=== PATIENT | male | born 1990 | race Caucasian/White ===

== ENCOUNTER 2023-07-01 16:19 | Observation (INO) ==
--- NOTE | 2023-07-01 16:46 | ED Triage Note ---
Date of Service July 01, 2023 History of Present Illness This patient was briefly evaluated while in triage. An abbreviated physical exam was performed. This patient is a 33-year-old with a history of bleeding gastric ulcer follows in [place] [facility] who presents to the ED for evaluation of bloody diarrhea and hematemesis. Started yesterday. History of admission in the past requiring transfusion. Not on any daily meds. Feels short of breath, no chest pain. Denies any abdominal pain. Physical Exam CONSTITUTIONAL: in no acute pain or distress, mildly uncomfortable SKIN: pink, warm, dry CARDIAC: tachycardic rate and regular rhythm RESPIRATORY: in no respiratory distress, lungs clear to auscultation ABDOMEN: No focal tenderness Initial orders for labs and / or imaging were placed and patient was placed in the waiting area until a bed is available. Please see further documentation for the full ED course.
[2023-07-01] MEDS ORDERED: PANTOPRAZOLE BOLUS/DRIP IV STA (17:32)
[2023-07-01] MEDS ORDERED: PANTOprazole 80 MG in DEXTROSE 5% 100 ML IV ONE (17:32)
--- NOTE | 2023-07-01 17:43 | Emergency Department Note ---
History of Present Illness General Chief complaint: Bleeding Stated complaint: BLEEDING INTERNALLY, VOMIT BLOOD Time Seen by Provider: 07/01/23 17:31 History of Present Illness Provider Complaint: + gross hematemesis, + melena and + gross hematochezia Onset (ago): 1 day(s) Pain Consistency: + intermittent Severity: similar to previous episodes Relieved By: + none Exacerbated By: + eating Context: + history of GI bleed and + alcohol abuse (History of alcohol abuse however he states he has not been drinking recently); no rectal trauma Associated symptoms: + nausea and + vomiting; no abdominal pain, no fever, no chills, no headaches or no shortness of breath HPI Narrative: Patient states that he has a history of alcohol abuse. He states he has not drank alcohol in the last year. The patient reports that last year he had a GI bleed secondary to ulcers. Patient reports he had endoscopy done at [facility] and had to be transfused 4 to 6 units of blood. Home Medications Medication Instructions Recorded Confirmed Type acetaminophen 500 mg tablet 100 mg PO Q6H PRN Pain 07/01/23 07/01/23 History (Tylenol Extra Strength) albuterol sulfate 90 mcg/actuation 2 puff inhalation Q6H PRN 07/01/23 07/01/23 History aerosol inhaler Shortness Of Breath Or Wheezing famotidine-Ca carb-mag hydrox 10 1 tab PO BID PRN Acid Reflux 07/01/23 07/01/23 History mg-800 mg-165 mg chewable tablet (Pepcid Complete) sumatriptan succinate 50 mg tablet 0 mg PO .COMPLEX 07/01/23 07/01/23 History (Imitrex) Allergies Allergy/AdvReac Type Severity Reaction Status Date / Time No Known Allergies Allergy Unverified 07/01/23 20:07 Past Med/Surg History Medical History (Updated 07/01/23 @ 23:12 by Guy Santos MD) GI bleed No pertinent family history Surgical History (Updated 07/01/23 @ 18:10 by Guy Santos MD) No pertinent past surgical history Social History Smoking Status: Never smoker Preferred Language: Yi Feels Safe at Home: Yes Physical Exam Vital Signs: Vital Signs - 24 hr 07/01/23 16:35 07/01/23 18:08 07/01/23 18:25 Temperature 36.7 C Temperature Source Temporal Artery Sc an Pulse Rate 125 H 108 H Pulse Rate [Apical ] Respiratory Rate 20 Respiratory Effort / Characteristics Respiratory Depth Respiratory Patter n Blood Pressure 114/70 Blood Pressure [Ri ght Arm] Blood Pressure Melissa n 84 Blood Pressure Melissa n [Right Arm] Pulse Oximetry 96 Oxygen Delivery Me thod Room Air Room Air Sepsis Recent Feve r Within 48 Hours No Sepsis New/Unexpla ined Change in Men lorteo Status N/A Sepsis Action Take n by Nursing No Action Required 07/01/23 19:43 Temperature Temperature Source Pulse Rate Pulse Rate [Apical ] 94 H Respiratory Rate 13 Respiratory Effort / Characteristics Non-Labored Sponta neous Respiratory Depth Normal Respiratory Patter n Regular Blood Pressure Blood Pressure [Ri ght Arm] 116/71 Blood Pressure Melissa n Blood Pressure Melissa n [Right Arm] 86 Pulse Oximetry 97 Oxygen Delivery Me thod Room Air Sepsis Recent Feve r Within 48 Hours Sepsis New/Unexpla ined Change in Men loreto Status Sepsis Action Take n by Nursing Physical Exam: Physical Exam GENERAL: She is oriented to person, place, and time. She appears well-developed and well-nourished. She does not appear distressed. HENT: Exam performed. -Head: Normocephalic and atraumatic. -Right Ear: External ear normal. No mastoid erythema -Left Ear: External ear normal. No mastoid erythema -Mouth/Throat: The oropharynx is clear and moist. No trismus in the jaw. No dental abscesses or uvula swelling. No oropharyngeal exudate or tonsillar abscesses. EYES: Conjunctivae and EOM are normal.Right eye exhibits no discharge. Left eye exhibits no discharge. No scleral icterus. NECK: Normal range of motion. Neck supple. No JVD present. No tracheal deviation and normal range of motion present. CV: Normal rate, regular rhythm, normal heart sounds and intact distal pulses. There is no peripheral edema. Palpable radial pulses bue. PULM/CHEST: Effort normal and breath sounds normal. No respiratory distress. No stridor. She has no wheezes. She has no rales. -Chest Wall: She exhibits no tenderness. ABD: The abdomen is soft and obese. Bowel sounds are normal. She has no distension. No mass is present. There is no tenderness. There is no rebound, no guarding, no Polanco's sign and no tenderness at McBurney's point. Rovsig negative Rectal: Melanotic stools mixed with bloody stools. Hemoccult positive MUSC/SKEL: Normal range of motion. There is no peripheral edema, tenderness or deformity. NEURO: Motor and sensation grossly intact. SKIN: Skin is warm and dry. She is not diaphoretic. PSYCH: She has a normal mood and affect. Behavior is normal. Judgment and thought content normal. Course Course 1730: The patient was evaluated in room C1. A complete history and physical exam was performed Cardiac monitoring: An order was placed for continuous cardiac monitoring. The monitor shows a rate of 90 with sinus rhythm interpreted by me Patient started on Protonix bolus and drip given his reported history of h ematemesis and melanotic stools. 190: Vital signs stable. Hemoglobin stable. [facility] Eugene team notified. Administered Medications Discontinued Medications Pantoprazole Sodium 80 mg/ (Dextrose) 120 mls @ 400 mls/hr IV NOW ONE Stop: 07/01/23 17:49 Last Infusion: 07/01/23 18:17 Dose: 0 mls/hr Documented By: Admin: 07/01/23 17:59 Dose: 400 mls/hr Documented By: SHARITA Pantoprazole Sodium 40 mg/ (Dextrose) 100 mls @ 20 mls/hr IV Q5H [facility] Stop: 07/31/23 17:59 Last Admin: 07/01/23 18:41 Dose: 8 mg/hr, 20 mls/hr Documented By: SHARITA Pantoprazole Sodium (Pantoprazole Bolus/Drip) 1 each IV NOW STA Stop: 07/01/23 17:33 Last Admin: 07/01/23 18:04 Dose: 1 each Documented By: SHARITA Medical Decision Making Laboratory Data Attestation: I reviewed the patient's lab results. 07/01/23 17:10 07/01/23 17:10 Lab Results 07/01/23 07/01/23 07/01/23 Range/Units 17:10 17:10 17:10 WBC Cancelled RBC Cancelled Hgb Cancelled Hct Cancelled MCV Cancelled MCH Cancelled MCHC Cancelled RDW Std Deviation Cancelled RDW Coeff of Fiordaliza Cancelled Plt Count Cancelled MPV Cancelled Immature Gran % (Auto) Cancelled Neut % (Auto) Cancelled Lymph % (Auto) Cancelled [place] % (Auto) Cancelled Eos % (Auto) Cancelled Baso % (Auto) Cancelled Neut # (Auto) Cancelled Lymph # (Auto) Cancelled [place] # (Auto) Cancelled Eos # (Auto) Cancelled Baso # (Auto) Cancelled Immature Gran # (Auto) Cancelled Absolute Nucleated RBC Cancelled Nucleated RBC % (auto) Cancelled Neutrophils % (Manual) Cancelled Band Neutrophils % Cancelled Lymphocytes % (Manual) Cancelled Prolymphocyte % Cancelled Reactive Lymphs % (Man) Cancelled Monocytes % (Manual) Cancelled Eosinophils % (Manual) Cancelled Basophils % (Manual) Cancelled Metamyelocytes % (Man) Cancelled Myelocytes % (Man) Cancelled Promyelocytes % (Man) Cancelled Blast Cells % (Manual) Cancelled Plasma Cell % (Manual) Cancelled Other Cells % Cancelled Nucleated RBC % Cancelled Neutrophils # (Manual) Cancelled Band Neutrophils # Cancelled Total Absolute Neuts Cancelled Lymphocytes # (Manual) Cancelled Prolymphocyte # Cancelled Reactive Lymphs # Cancelled Total Abs Lymphocytes Cancelled Monocytes # (Manual) Cancelled Eosinophils # (Manual) Cancelled Basophils # (Manual) Cancelled Metamyelocytes # (Man) Cancelled Myelocytes # (Manual) Cancelled Promyelocytes # (Man) Cancelled Blast Cells # (Man) Cancelled Plasma Cell # (Manual) Cancelled Other Cells # Cancelled Nucleated RBCs # (Man) Cancelled Hypersegmented Neuts Cancelled Hyposegmented Neuts Cancelled Hypogranular Neuts Cancelled Large Granular Lymphs Cancelled # Lrg Granular Lymphs Cancelled Hairy Cells Cancelled Smudge Cells Cancelled Toxic Granulation Cancelled Toxic Vacuolation Cancelled Dohle Bodies Cancelled Gena Rods Cancelled Platelet Estimate Cancelled Hypogranular Platelets Cancelled Giant Platelets Cancelled Platelet Satelliting Cancelled RBC Morphology Cancelled Polychromasia Cancelled Hypochromasia Cancelled Poikilocytosis Cancelled Basophilic Stippling Cancelled Anisocytosis Cancelled Microcytosis Cancelled Macrocytosis Cancelled Spherocytes Cancelled Pappenheimer Bodies Cancelled Sickle Cells Cancelled Target Cells Cancelled Tear Drop Cells Cancelled Ovalocytes Cancelled Stomatocytes Cancelled Guillen-[place] Bodies Cancelled Echinocytes Cancelled Acanthocytes (Spur) Cancelled Rouleaux Cancelled RBC Agglutinates Cancelled Schistocytes Cancelled Sezary Cell Cancelled PT (9.0-12.0) Seconds INR (0.9-1.1) APTT (21.0-31.0) Seconds PTT Ratio Sodium 140 (136-145) mmol/L Potassium 4.0 (3.5-5.1) mmol/L Chloride 105 (98-107) mmol/L Carbon Dioxide 24 (21-32) mmol/L Anion Gap 11 (3-11) BUN 42 H (6-23) mg/dl Creatinine 0.75 (0.6-1.4) mg/dl Est Cr Clr Drug Dosing 193.8 ml/min Est GFR ( Amer) 139.7 ml/min Est GFR (Non-Af Amer) 120.5 ml/min BUN/Creatinine Ratio 56.0 H (10-20) Glucose 199 H (70-99(Fasting)) mg/dl Calcium 9.3 (8.6-10.3) mg/dl Total Bilirubin 2.0 H (0.2-1.0) mg/dl AST 31 (13-39) U/L ALT 24 (7-52) U/L Alkaline Phosphatase 62 (34-104) U/L Troponin I High Sens 16.0 (0-20) pg/ml Total Protein 5.8 L (6.0-8.3) gm/dl Albumin 4.3 (3.4-5.0) gm/dl Globulin 1.5 L (2.5-4.0) gm/dl Albumin/Globulin Ratio 2.9 H (0.9-2) Lipase < 3 L (11-82) U/L Blood Parasites ID Cancelled Blood Type Cancelled Antibody Screen Cancelled 07/01/23 07/01/23 07/01/23 Range/Units 17:53 17:53 18:45 WBC 15.83 H RBC 4.09 L Hgb 12.9 L Hct 36.2 L MCV 88.5 MCH 31.5 MCHC 35.6 RDW Std Deviation 46.2 RDW Coeff of Fiordaliza 14.5 Plt Count 185 MPV 11.3 Immature Gran % (Auto) 0.5 Neut % (Auto) 77.6 Lymph % (Auto) 15.2 [place] % (Auto) 6.3 Eos % (Auto) 0.1 Baso % (Auto) 0.3 Neut # (Auto) 12.29 H Lymph # (Auto) 2.41 [place] # (Auto) 1.00 H Eos # (Auto) 0.01 Baso # (Auto) 0.04 Immature Gran # (Auto) 0.08 Absolute Nucleated RBC Nucleated RBC % (auto) Neutrophils % (Manual) Band Neutrophils % Lymphocytes % (Manual) Prolymphocyte % Reactive Lymphs % (Man) Monocytes % (Manual) Eosinophils % (Manual) Basophils % (Manual) Metamyelocytes % (Man) Myelocytes % (Man) Promyelocytes % (Man) Blast Cells % (Manual) Plasma Cell % (Manual) Other Cells % Nucleated RBC % Neutrophils # (Manual) Band Neutrophils # Total Absolute Neuts Lymphocytes # (Manual) Prolymphocyte # Reactive Lymphs # Total Abs Lymphocytes Monocytes # (Manual) Eosinophils # (Manual) Basophils # (Manual) Metamyelocytes # (Man) Myelocytes # (Manual) Promyelocytes # (Man) Blast Cells # (Man) Plasma Cell # (Manual) Other Cells # Nucleated RBCs # (Man) Hypersegmented Neuts Hyposegmented Neuts Hypogranular Neuts Large Granular Lymphs # Lrg Granular Lymphs Hairy Cells Smudge Cells Toxic Granulation Toxic Vacuolation Dohle Bodies Gena Rods Platelet Estimate Hypogranular Platelets Giant Platelets Platelet Satelliting RBC Morphology Polychromasia Hypochromasia Poikilocytosis Basophilic Stippling Anisocytosis Microcytosis Macrocytosis Spherocytes Pappenheimer Bodies Sickle Cells Target Cells Tear Drop Cells Ovalocytes Stomatocytes Guillen-[place] Bodies Echinocytes Acanthocytes (Spur) Rouleaux RBC Agglutinates Schistocytes Sezary Cell PT 12.5 H (9.0-12.0) Seconds INR 1.2 H (0.9-1.1) APTT 26.9 (21.0-31.0) Seconds PTT Ratio 1.0 Sodium (136-145) mmol/L Potassium (3.5-5.1) mmol/L Chloride (98-107) mmol/L Carbon Dioxide (21-32) mmol/L Anion Gap (3-11) BUN (6-23) mg/dl Creatinine (0.6-1.4) mg/dl Est Cr Clr Drug Dosing ml/min Est GFR ( Amer) ml/min Est GFR (Non-Af Amer) ml/min BUN/Creatinine Ratio (10-20) Glucose (70-99(Fasting)) mg/dl Calcium (8.6-10.3) mg/dl Total Bilirubin (0.2-1.0) mg/dl AST (13-39) U/L ALT (7-52) U/L Alkaline Phosphatase (34-104) U/L Troponin I High Sens (0-20) pg/ml Total Protein (6.0-8.3) gm/dl Albumin (3.4-5.0) gm/dl Globulin (2.5-4.0) gm/dl Albumin/Globulin Ratio (0.9-2) Lipase (11-82) U/L Blood Parasites ID Blood Type A Positive Antibody Screen NEGATIVE Imaging Data Attestation: I personally reviewed and interpreted this imaging study as follows: My Impression: Acute abdominal series: Chest x-ray negative. Airway clear. No pneumothorax. No consolidation. No cardiomegaly or cephalization.. No free air under the diaphragm. No fractures of the skeletal structures. No air-fluid levels nonspe cific bowel gas pattern. Radiologist's Impression: Chest/Abdomen X-ray 07/01/23 17:32 CHEST AND ABDOMEN 2 VIEWS HISTORY: vomiting blood COMPARISON: None. FINDINGS: The lungs are clear. The cardiomediastinal silhouette is within normal limits. There is no pneumoperitoneum or pneumatosis. The bowel gas pattern is unremarkable. No evidence for bowel obstruction. No pathologic calcifications. IMPRESSION: No acute cardiopulmonary process. No evidence for bowel obstruction. ACT 112: Negative or not required by law. Electronically signed by: Brijesh Vargas M.D. 07/01/2023 7:15 PM ECG Data Attestation: I personally reviewed and interpreted this ECG as follows: Rate (beats per minute): 92 Rhythm: normal sinus Findings: no ST depression, no ST elevation or no prolonged QT MDM Narrative 1731: The patient was evaluated in room C1. A complete history and physical exam was performed Cardiac monitoring: An order was placed for continuous cardiac monitoring. The monitor shows a rate of 90 with sinus rhythm interpreted by me Patient started on Protonix bolus and drip given his reported history of hematemesis and melanotic stools. 1905: Vital signs stable. Hemoglobin stable. Patient will be admitted to the [place] hospitalist team for GI bleed. Dr. Eugene team notified. Impression & Plan GI bleed Discharge Plan Visit Data Chief Complaint: Bleeding Stated Complaint: BLEEDING INTERNALLY, VOMIT BLOOD ED Provider: Guy Santos Discharge Problem: GI bleed Patient Disposition: Admitted As Inpatient Discharge Instructions Interventions: ED Discharge Assessment Last Done: 07/01/23 22:39
[2023-07-01 17:58] LABS: Alanine Aminotransferase 24 U/L (7-52); Albumin Globulin Ratio 2.9 (0.9-2); Albumin Level 4.3 gm/dl (3.4-5.0); Alkaline Phosphatase 62 U/L (34-104); Anion Gap 11 (3-11); Aspartate Aminotransferase 31 U/L (13-39); Blood Urea Nitrogen 42 mg/dl (6-23); Calcium 9.3 mg/dl (8.6-10.3); Carbon Dioxide 24 mmol/L (21-32); Chloride 105 mmol/L (98-107); Creatinine Clr Calc Pharmacy 193.8 ml/min; Est GFR (African American) 139.7 ml/min; Est GFR (Non-African American) 120.5 ml/min; Globulin 1.5 gm/dl (2.5-4.0); Glucose 199 mg/dl (70-99(Fasting)); Sodium 140 mmol/L (136-145); Total Protein 5.8 gm/dl (6.0-8.3)
[2023-07-01] MEDS ORDERED: PANTOprazole 40 MG in DEXTROSE 5% 100 ML IV SCH (18:00)
[2023-07-01 18:22] LABS: Lipase < 3 U/L (11-82)
[2023-07-01 18:36] LABS: INR 1.2 (0.9-1.1); Partial Thromboplastin Time 26.9 Seconds (21.0-31.0); Prothrombin Time 12.5 Seconds (9.0-12.0)
[2023-07-01 19:00] LABS: Basophils # (auto) 0.04 K/uL (0.00-0.20); Basophils % (auto) 0.3 %; Eosinophils # (auto) 0.01 K/uL (0.00-0.50); Eosinophils % (auto) 0.1 %; Hematocrit (blood only) 36.2 % (42.0-52.0); Hemoglobin 12.9 g/dl (14.0-18.0); Immature Granulocytes # (auto) 0.08 K/uL (0.01-0.20); Immature Granulocytes % (auto) 0.5 %; Lymphocytes # (auto) 2.41 K/uL (1.20-3.40); Lymphocytes % (auto) 15.2 %; Mean Corpuscular Hemoglobin 31.5 pg (25.0-34.0); Mean Corpuscular Hgb Conc 35.6 g/dL (32.0-36.0); Mean Corpuscular Volume 88.5 fL (80.0-100.0); Mean Platelet Volume 11.3 fL (9.4-12.4); Monocytes % (auto) 6.3 %; Neutrophils # (auto) 12.29 K/uL (1.40-6.50); Neutrophils % (auto) 77.6 %; Platelet Count 185 K/uL (130-400); RDW Coefficient of Variation 14.5 % (11.5-14.5); RDW Standard Deviation 46.2 fL (36.4-46.3); Red Blood Count 4.09 M/uL (4.70-6.10); White Blood Count 15.83 K/ul (4.8-10.8)
--- NOTE | 2023-07-01 19:18 | XRay Report ---
CHEST AND ABDOMEN 2 VIEWS HISTORY: vomiting blood COMPARISON: None. FINDINGS: The lungs are clear. The cardiomediastinal silhouette is within normal limits. There is no pneumoperitoneum or pneumatosis. The bowel gas pattern is unremarkable. No evidence for b owel obstruction. No pathologic calcifications. IMPRESSION: No acute cardiopulmonary process. No evidence for bowel obstruction. ACT 112: Negative or not required by law. Electronically signed by: Brijesh Vargas M.D. 07/01/2023 7:15 PM
--- NOTE | 2023-07-01 19:47 | History & Physical Report ---
Date of Service July 01, 2023 Assessment & Plan (1) Hematochezia: Plan: 33 year old male w/ PmHx peptic ulcers, anemia likely from blood loss via ulcers, migraine headaches admitted for possible GI bleed. Hematochezia/Hematemesis/Hx peptic ulcer disease: -History of peptic ulcer disease admitted at [place] 05/2022 requiring 6 Units PRBC transfusion per [place] records. -Followed with GI last in July at [facility]. -Development of new bloody diarrhea then bloody vomit after ibuprofen use. -Concern for re-emergence of ulcers causing bleeding. -Past history of alcohol use disorder, unknown if history of varices. Will treat with octreotide and Ceftriaxone. -Ordered pantoprazole 40mg IV BID. -Hemoglobin currently stable at 12.9, will trend with AM CBC. -Possible trigger for current episode from GI infection vs diet vs ibuprofen use. -Will consult GI, appreciate recs. Will keep NPO for potential EGD. -Vitals stable, monitor on med/tele. History of migraine: -Avoid NSAID use for migraines in setting of possible GI bleed. -Continued home sumatriptan for breakthrough treatment. F/E/N/GI: NPO for potential EGD. DVT Prophylaxis: No chemoprophylaxis while possible active bleed. Code status: Full Dispo: Med/tele (2) Hematemesis: (3) History of peptic ulcer disease: (4) History of migraine: History of Present Illness Chief Complaint: hematochezia, hematemesis Primary Care Provider: NO PCP Dwain is a 33 year old male w/ PmHx of peptic ulcers, anemia likely from blood loss via ulcers, migraine headaches coming in for hematochezia and hematemesis for 2 days. Patient states that he has a history of peptic ulcer disease from about a year ago where he had the same kind of hematochezia. At that time he had required transfusions for low hemoglobin. 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 The area was biopsied without any identification of H. pylori, minimal chronic inflammation with reactive epithelial change. He last followed up with gastroenterology at [facility] on 08/11/2022, he does not currently have a PCP as his old one retired about a year or so ago. He states that over the course of the two days he has felt feverish at times, chills as well. His temperature had been about 99.2F when he checked it the other day. He developed dark bloody stools yesterday morning that came out like diarrhea. He had a migraine headache the other day and ran out of his Excedrin and says that he took his mom's ibuprofen at about 400mg x1. After he developed nausea and vomiting with dark bloody color to the vomit as well. Denies shortness of breath, chest pain, congestion, cough, urinary issues. Patient is not a smoker, has a past history o f alcohol use disorder however has not had an issue with it since May of 2022, now has only couple of beers every few weeks. In the ED his WBC 15.83, Hgb 12.9, platelet 185, PT 12.5, INR 1.2, T bili 2.0, otherwise unremarkable CMP. Chest/abdomen XR w/o acute abnormality. Allergies Allergy/AdvReac Type Severity Reaction Status Date / Time No Known Allergies Allergy Unverified 07/01/23 20:07 Home Medications Medication Instructions Recorded Confirmed Type acetaminophen 500 mg tablet 100 mg PO Q6H PRN Pain 07/01/23 07/01/23 History (Tylenol Extra Strength) albuterol sulfate 90 mcg/actuation 2 puff inhalation Q6H PRN 07/01/23 07/01/23 History aerosol inhaler Shortness Of Breath Or Wheezing famotidine-Ca carb-mag hydrox 10 1 tab PO BID PRN Acid Reflux 07/01/23 07/01/23 History mg-800 mg-165 mg chewable tablet (Pepcid Complete) sumatriptan succinate 50 mg tablet 0 mg PO .COMPLEX 07/01/23 07/01/23 History (Imitrex) Past Med/Surg History Medical History (Updated 07/01/23 @ 23:12 by Guy Santos MD) GI bleed No pertinent family history Surgical History (Updated 07/01/23 @ 18:10 by Guy Santos MD) No pertinent past surgical history Social History Smoking Status: Never smoker Preferred Language: Kuwaiti Feels Safe at Home: Yes Review of Systems Review of Systems: As per HPI. Physical Exam Constitutional: WD/WN, vitals as above Eyes: PERRL, conjunctivae normal, anicteric sclerae Respiratory: normal respiratory effort, lungs clear to auscultation Cardiovascular: Rate/Rhythm: + tachycardic Heart Sounds: normal S1 and normal S2 No peripheral edema. Gastrointestinal (Abdomen): normal bowel sounds, soft, nontender, no hepatosplenomegaly Skin: no rashes, warm and dry Psychiatric: A+Ox3, euthymic affect Results & Data Results & Data Vital Signs (Past 12 Hours) Vital Signs Temp Pulse Pulse Resp BP BP Pulse Ox 07/01/23 19:43 94 H 13 116/71 97 07/01/23 18:25 07/01/23 18:08 108 H 07/01/23 16:35 36.7 C 125 H 20 114/70 96 O2 Del Method 07/01/23 19:43 Room Air 07/01/23 18:25 Room Air 07/01/23 18:08 07/01/23 16:35 Room Air Supervising Physician Co-Signing Physician Notes Attending addendum: I have physically seen this patient, have supervised the medical residents activities, and agree with the H&P unless as otherwise noted. Assessment and Plan: Hematochezia/hematemesis/peptic ulcer disease history- History of bleeding from peptic ulcer disease requiring 6 units PRBCs at [facility] [place] 06[place] Patient reports initial bloody diarrhea, then vomiting blood after ibuprofen use Continue Protonix 40 mg IV twice daily Patient has had history of significant alcohol abuse, but denies any recent intake. Unknown if history of varices, will start octreotide drip per protocol Ceftriaxone 2 g IV daily H&H every 6 hours Type and screen Consult gastroenterology Hyperglycemia- Glucose 199 on admission No reported history of diabetes Placed on Accu-Cheks with NovoLog SSI Check hemoglobin A1c Migraine- Imitrex as outpatient Resident Activity Tracking Resident Involvement: Resident Care Provided Care Provided: Adult Hospital Medicine
[2023-07-01 22:34] LABS: Adenovirus F 40/41 PCR Not Detected (NotDetected); Astrovirus PCR Not Detected (NotDetected); Campylobacter PCR Not Detected (NotDetected); Cryptosporidium PCR Not Detected (NotDetected); Cyclospora cayetanensis PCR Not Detected (NotDetected); Entamoeba histolytica PCR Not Detected (NotDetected); Enteroaggregative E.coli(EAEC) Not Detected (NotDetected); Enteropathogenic E.coli (EPEC) Not Detected (NotDetected); Enterotoxigenic E.coli (ETEC) Not Detected (NotDetected); Giardia lamblia PCR Not Detected (NotDetected); Norovirus GI/GII PCR Not Detected (NotDetected); Plesiomonas shigelloides PCR Not Detected (NotDetected); Rotavirus A PCR Not Detected (NotDetected); Salmonella PCR Not Detected (NotDetected); Sapovirus PCR Not Detected (NotDetected); Shiga-like Toxin E.coli (STEC) Not Detected (NotDetected); Shigella/Enteroinvasive E.coli Not Detected (NotDetected); Vibrio cholerae PCR Not Detected (NotDetected); Vibrio species PCR Not Detected (NotDetected); Yersinia enterocolitica PCR Not Detected (NotDetected)
[2023-07-01] MEDS ORDERED: ACETAMINOPHEN 325 MG TAB PO PRN (22:39)
[2023-07-01] MEDS ORDERED: ONDANSETRON INJ 2 MG/ML 2 ML VIAL IV PRN (22:39)
[2023-07-01] MEDS ORDERED: STAT IV STA (22:39)
[2023-07-01] MEDS ORDERED: ALBUTEROL HFA 8 GM INHALER INH PRN (22:39)
[2023-07-01] MEDS ORDERED: SUMAtriptan succinate 50 MG TAB PO PRN (22:39)
[2023-07-01] MEDS ORDERED: OCTREOTIDE ACETATE 50 MCG in SYRINGE 9.5 ML IV STA (22:42)
[2023-07-01] MEDS ORDERED: OCTREOTIDE ACETATE 500 MCG in DEXTROSE 5% 100 ML IV SCH (22:45)
[2023-07-01] MEDS ORDERED: cefTRIAXone SODIUM 2,000 MG in DEXTROSE 5% 50 ML IV SCH (23:00)
[2023-07-01] MEDS: D5NSS + 20MEQ KCL 20 MEQ/1,000 ML BAG IV SCH (23:26)
[2023-07-01] MEDS: PANTOprazole 40 MG in SYRINGE 0 ML IV SCH (23:27)
[2023-07-01] MEDS ORDERED: cefTRIAXone SODIUM 2000MG/70ML D5W IV ONE (23:46)
[2023-07-02 05:35] LABS: Basophils # (auto) 0.03 K/uL (0.00-0.20); Basophils % (auto) 0.2 %; Eosinophils # (auto) 0.03 K/uL (0.00-0.50); Eosinophils % (auto) 0.2 %; Hematocrit (blood only) 33.2 % (42.0-52.0); Hemoglobin 11.6 g/dl (14.0-18.0); Immature Granulocytes # (auto) 0.05 K/uL (0.01-0.20); Immature Granulocytes % (auto) 0.4 %; Lymphocytes % (auto) 28.2 %; Mean Corpuscular Hemoglobin 31.1 pg (25.0-34.0); Mean Corpuscular Hgb Conc 34.9 g/dL (32.0-36.0); Mean Platelet Volume 11.6 fL (9.4-12.4); Monocytes # (auto) 0.99 K/uL (0.11-0.59); Neutrophils # (auto) 7.81 K/uL (1.40-6.50); Platelet Count 155 K/uL (130-400); RDW Coefficient of Variation 14.6 % (11.5-14.5); RDW Standard Deviation 46.5 fL (36.4-46.3); Red Blood Count 3.73 M/uL (4.70-6.10); White Blood Count 12.41 K/ul (4.8-10.8)
--- NOTE | 2023-07-02 05:41 | Billing Data ---
Date of Service July 02, 2023 Coding Level of Care Code 36787 INT INP/OBS CARE
[2023-07-02 05:52] LABS: Albumin Level 3.8 gm/dl (3.4-5.0); Calcium 8.5 mg/dl (8.6-10.3); Potassium 4.1 mmol/L (3.5-5.1)
[2023-07-02 05:58] LABS: BUN Creatinine Ratio 45.7 (10-20); Est GFR (African American) 126.2 ml/min; Est GFR (Non-African American) 108.9 ml/min; Phosphorus 2.7 mg/dl (2.5-4.9)
--- NOTE | 2023-07-02 07:59 | Hospitalist Progress Note ---
Date of Service July 02, 2023 Assessment & Plan (1) Hematochezia: Plan: 33 year old male w/ PmHx peptic ulcers, presents with hamatemsis and hematochezia Hematochezia/Hematemesis/Hx peptic ulcer disease: -History of peptic ulcer disease admitted at [place] 05/2022 requiring 6 Units PRBC transfusion per [place] records. -Followed with GI last in July at [facility]. -Development of new bloody diarrhea then bloody vomit after ibuprofen use. -Ordered pantoprazole 40mg IV BID. -Hemoglobin currently stable at 12.9-11.6 11.6 -Possible trigger for current episode from GI infection vs diet vs ibuprofen use . - gastroenterology planning on EGD History of migraine: -Avoid NSAID use for migraines in setting of possible GI bleed. -Continued home sumatriptan for breakthrough treatment. DVT Prophylaxis: No chemoprophylaxis while possible active bleed. Code status: Full (2) Hematemesis: (3) History of peptic ulcer disease: (4) History of migraine: Admission and Anticipated Discharge Date Admission Date: July 01, 2023 Subjective patient and 1 bout of epigastric discomfort Aminoven-now completely resolved. He had no additional vomiting or melena. Hemoglobin has remained without significant decrement Physical Exam Physical Exam: awake alert appropriate abdomen is NABS soft nontender nondistended Results & Data Results & Data Vital Signs (Past 12 Hours) Vital Signs Pulse Pulse Resp BP Pulse Ox Pulse Ox O2 Del Method 07/02/23 05:43 96 07/02/23 05:00 89 18 109/74 98 Room Air 07/01/23 22:39 104 H 07/02/23 01:14 87 18 113/77 93 Room Air 07/01/23 21:00 103 H 12 120/78 98 Room Air O2 Del Method O2 Flow Rate 07/02/23 05:43 Room Air 0 07/02/23 05:00 07/01/23 22:39 07/02/23 01:14 07/01/23 21:00 Laboratory Results reviewed repeat hemoglobin and original CBC. Discussed case with gastroenterology on-call for endoscopy on 07/02/2023 PG Care Time/CCT Total # of Minutes Spent Total Time Spent with Patient: Total time spent is greater than 50% in coordination of care (as documented) at patient's floor/unit and/or counseling patient: Coding Level of Care Code 34287 SUB INP/OBS CARE MIN Diagnoses Hematochezia K92.1 Hematemesis K92.0 History of peptic ulcer disease Z87.11 History of migraine Z86.69
[2023-07-02] MEDS: PANTOprazole 40 MG in SYRINGE 0 ML IV SCH ×2 (08:05→20:23)
[2023-07-02] MEDS: D5NSS + 20MEQ KCL 20 MEQ/1,000 ML BAG IV SCH (10:25)
[2023-07-02 11:09] LABS: Hematocrit (blood only) 32.5 % (42.0-52.0); Hemoglobin 11.6 g/dl (14.0-18.0); Mean Corpuscular Hemoglobin 31.4 pg (25.0-34.0); Mean Corpuscular Hgb Conc 35.7 g/dL (32.0-36.0); Mean Corpuscular Volume 88.1 fL (80.0-100.0); Mean Platelet Volume 11.4 fL (9.4-12.4); Platelet Count 157 K/uL (130-400); RDW Standard Deviation 47.6 fL (36.4-46.3); Red Blood Count 3.69 M/uL (4.70-6.10); White Blood Count 13.63 K/ul (4.8-10.8)
[2023-07-02] MEDS ORDERED: ATROPINE SULFATE 0.1 MG/ML 10ML SYR IV PRN (14:02)
[2023-07-02] MEDS ORDERED: fentaNYL citrate PF 100 MCG/2 ML VIAL IV PRN (14:02)
[2023-07-02] MEDS ORDERED: ePHEDrine sulfate 50 MG/ML AMP IV PRN (14:02)
[2023-07-02] MEDS ORDERED: ONDANSETRON INJ 2 MG/ML 2 ML VIAL IV PRN (14:02)
--- NOTE | 2023-07-02 14:02 | Anesthesiology Consultation ---
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 Surgery Operation Date: 07/02/23 14:00 Proposed Procedures p EGD Hemostasis - Souleymane Heredia MD Height/Weight Height: 5 ft 11 in Weight: 131.6 kg Allergies Allergy/AdvReac Type Severity Reaction Status Date / Time No Known Allergies Allergy Unverified 07/01/23 20:07 Medications Home Medications Medication Instructions Recorded Confirmed Last Taken acetaminophen 500 mg tablet 100 mg PO Q6H PRN Pain 07/01/23 07/01/23 Unknown (Tylenol Extra Strength) albuterol sulfate 90 mcg/actuation 2 puff inhalation Q6H PRN 07/01/23 07/01/23 Unknown aerosol inhaler Shortness Of Breath Or Wheezing famotidine-Ca carb-mag hydrox 10 1 tab PO BID PRN Acid Reflux 07/01/23 07/01/23 Unknown mg-800 mg-165 mg chewable tablet (Pepcid Complete) sumatriptan succinate 50 mg tablet 0 mg PO .COMPLEX 07/01/23 07/01/23 Unknown (Imitrex) Active Medications Generic Name Dose Route Start Last Admin Trade Name Freq PRN Reason Stop Dose Admin Pantoprazole Sodium 40 mg/ 10 mls @ 5 mls/min 07/01/23 22:39 07/02/23 08:05 Syringe IV 07/31/23 22:38 5 mls/min BID ASHLEIGH Administration Past Medical History Medical History GI bleed No pertinent family history Past Surgical History Surgical History No pertinent past surgical history Social History Smoking Status: Never smoker Physical Exam Vital Signs Last Vital Signs Temp 98.1 F 07/01/23 16:35 Pulse 89 07/02/23 05:00 Resp 18 07/02/23 05:00 BP 109/74 07/02/23 05:00 Pulse Ox 96 07/02/23 05:43 O2 Del Method Room Air 07/02/23 05:43 O2 Flow Rate 0 07/02/23 05:43 Testing Laboratory Results 07/02/23 10:47 07/02/23 04:55 PT 12.5 Seconds (9.0-12.0) H 07/01/23 17:53 INR 1.2 (0.9-1.1) H 07/01/23 17:53 APTT 26.9 Seconds (21.0-31.0) 07/01/23 17:53 Blood Type A Positive 07/01/23 17:53 Antibody Screen NEGATIVE 07/01/23 17:53 07/02/23 07/02/23 12:27 08:30 POC Glucose 118 H 132 H Electrocardiogram Date: 07/01/23 Normal sinus rhythm Possible Inferior infarct , age undetermined Cannot rule out Anterior infarct , age undetermined Abnormal ECG No previous ECGs available
--- NOTE | 2023-07-02 14:04 | Gastrointestinal Consultation ---
Date of Consultation July 02, 2023 Assessment & Plan (1) Hematemesis: (2) Hematochezia: Plan GI bleed in setting of hx PUD, suspect recurrent peptic ulcer vs less likely AVM or lower GI bleed. recs: Proceed with EGD. risks/benefits and procedure discussed with patient, who agrees to proceed supportive care PPI BID Thank you for allowing me to participate in the care of this patient. History of Present Illness Attending Physician: Eitan Trejo MD History of Present Illness 33 year old male with hx PUD, anemia, migraines here with hemate mesis/hematochezia x 2 days. He notes prior hx PUD and had EGD with [facility] most recently nov 2022. Has hx excedrin use but none lately and just took 1 ibuprofen 400 mg recently for a migraine. Does not drink significant alcohol at this time, last drinks was 2 weeks ago had two beers. no known hx h. pylori. labs reviewed. BUN elevated. Allergies Allergy/AdvReac Type Severity Reaction Status Date / Time No Known Allergies Allergy Unverified 07/01/23 20:07 Home Medications Medication Instructions Recorded Confirmed Type acetaminophen 500 mg tablet 100 mg PO Q6H PRN Pain 07/01/23 07/01/23 History (Tylenol Extra Strength) albuterol sulfate 90 mcg/actuation 2 puff inhalation Q6H PRN 07/01/23 07/01/23 History aerosol inhaler Shortness Of Breath Or Wheezing famotidine-Ca carb-mag hydrox 10 1 tab PO BID PRN Acid Reflux 07/01/23 07/01/23 History mg-800 mg-165 mg chewable tablet (Pepcid Complete) sumatriptan succinate 50 mg tablet 0 mg PO .COMPLEX 07/01/23 07/01/23 History (Imitrex) Patient History Medical History GI bleed No pertinent family history Surgical History No pertinent past surgical history Social History Smoking Status: Never smoker Preferred Language: Belarusian Feels Safe at Home: Yes Review of Systems Constitutional: no fever, no chills and no weight loss Eyes: as per Subjective / HPI Ear, Nose, Mouth, Throat: as per Subjective / HPI Respiratory: no dyspnea and no dyspnea on exertion Cardiovascular: no chest pain and no palpitations Gastrointestinal: as per Subjective / HPI Musculoskeletal: no joint pain and no swelling Integumentary: no rash and no lesions Neurologic: no numbness and no paresthesia Psychiatric: no depression and no anxiety Endocrine: no fatigue Hematologic / Lymphatic: no easy bleeding and no easy bruising Physical Exam Constitutional: WD/WN, vitals as above Eyes: EOM intact bilaterally Neck: normal visual inspection Respiratory: normal respiratory effort, lungs clear to auscultation Cardiovascular: RRR, no murmur, no edema Gastrointestinal (Abdomen): Inspection/Auscultation: abdomen normal to inspection; abdomen not distended Percussion/Palpation: abdomen soft; abdomen nontender and no hepatosplenomegaly Musculoskeletal: Head/Neck/Chest: normocephalic and head atraumatic Extremities: no cyanosis Skin: no rashes, warm and dry Neurologic: moves all extremities Psychiatric: Orientation: alert and cooperative Affect: euthymic affect Results & Data Vital Signs (Past 12 Hours) Vital Signs Pulse Resp BP Pulse Ox Pulse Ox O2 Del Method O2 Del Method 07/02/23 05:43 96 Room Air 07/02/23 05:00 89 18 109/74 98 Room Air O2 Flow Rate 07/02/23 05:43 0 07/02/23 05:00 PG Care Time/CCT Total # of Minutes Spent Total Time Spent with Patient: Total time spent is greater than 50% in coordination of care (as documented) at patient's floor/unit and/or counseling patient: Coding Level of Care Code 28757 IN/OBS CONSULT LVL 4,60M Diagnoses Hematemesis K92.0 Hematochezia K92.1
[2023-07-02] MEDS ORDERED: ONDANSETRON INJ 2 MG/ML 2 ML VIAL ONE (14:47)
[2023-07-02] MEDS ORDERED: LIDOCAINE 2% 2 ML VIAL/AMP(20MG/ML) INFIL ONE (14:47)
[2023-07-02] MEDS ORDERED: GLYCOPYRROLATE 0.2 MG/ML VIAL ONE (14:47)
[2023-07-02] MEDS ORDERED: PROPOFOL IV EMULSION 10 MG/ML 20 ML VIAL IV ONE (14:47)
--- NOTE | 2023-07-02 14:59 | Procedure Note ---
Procedure Note Date of Service July 02, 2023 Note GI brief procedure note EGD findings: antral ulcer noted as well as erosion, bx's taken for h. pylori, no active bleeding nor stigmata noted. recs: f/u path results advance diet as tolerated protonix 40 mg daily for 8-12 weeks repeat EGD in 3 months to reassess supportive care, IVFs Souleymane Heredia MD Gastroenterology Coding
--- NOTE | 2023-07-02 15:03 | GI REPORT ---
Patient Name: Dwain Leos Procedure Date: 07/02/2023 2:28 PM Date of : 1990 Admit Type: Inpatient Age: 33 Gender: Male Attending MD: Souleymane Heredia MD, Procedure: Upper GI endoscopy Providers: Souleymane Heredia MD Referring MD: Referred Self Indications: Hematemesis, Hematochezia Medicines: Monitored Anesthesia Care Complications: No immediate complications. Estimated blood loss: None. Estimated Blood Loss: Estimated blood loss: none. Procedure: Pre-Anesthesia Assessment: - Prior Anticoagulants: The patient has taken no anticoagulant or antiplatelet agents. - ASA Grade Assessment: II - A patient with mild systemic disease. After obtaining informed consent, the endoscope was passed under direct vision. Throughout the procedure, the patient's blood pressure, pulse, and oxygen saturations were monitored continuously. The Endoscope was introduced through the mouth, and advanced to the second part of duodenum. The upper GI endoscopy was accomplished without difficulty. The patient tolerated the procedure well. Findings: The Z-line was irregular. The exam of the esophagus was otherwise normal. One non-bleeding cratered gastric ulcer with no stigmata of bleeding was found in the gastric antrum as well as an erosion. Biopsies were taken with a cold forceps for Helicobacter pylori testing. Estimated blood loss: none. The duodenal bulb and second portion of the duodenum were normal. \ no active bleeding throughout exam. Impression: - Z-line irregular. - Non-bleeding gastric ulcer with no stigmata of bleeding. Biopsied. - Normal duodenal bulb and second portion of the duodenum. Recommendation: - Return patient to hospital [facility] for ongoing care. - Advance diet as tolerated today. f/u path results protonix 40 mg daily for 8-12 weeks repeat EGD in 3 months to reassess supportive care, IVFs Souleymane Heredia MD 07/02/2023 3:03:23 PM This report has been signed electronically. Note Initiated On: 07/02/2023 2:28 PM Number of Addenda: 0 I attest to the content of the Intraoperative Record and orders documented therein, exceptions below {[id number]}
--- NOTE | 2023-07-02 15:13 | Anesthesiology Progress Note ---
Date of Service July 02, 2023 Anesthesia Post Procedure Vital Signs Vital Signs: Temp Pulse Pulse Resp BP BP Pulse Ox 07/02/23 15:10 82 12 106/62 98 07/02/23 15:02 97.5 F L 102 H 16 112/62 96 07/02/23 05:43 07/02/23 05:00 89 18 109/74 98 07/01/23 22:39 104 H 07/02/23 01:14 87 18 113/77 93 07/01/23 21:00 103 H 12 120/78 98 07/01/23 19:43 94 H 13 116/71 97 07/01/23 18:25 07/01/23 18:08 108 H 07/01/23 16:35 98.1 F 125 H 20 114/70 96 Pulse Ox O2 Del Method O2 Del Method O2 Flow Rate O2 Flow Rate 07/02/23 15:10 Nasal Cannula 2 07/02/23 15:02 Nasal Cannula 2 07/02/23 05:43 96 Room Air 0 07/02/23 05:00 Room Air 07/01/23 22:39 07/02/23 01:14 Room Air 07/01/23 21:00 Room Air 07/01/23 19:43 Room Air 07/01/23 18:25 Room Air 07/01/23 18:08 07/01/23 16:35 Room Air Transfer of Care Handoff Completed per policy Notes Mental Status: alert / awake / arousable and participated in evaluation Patient Amnestic to Procedure: Yes Nausea / Vomiting: adequately controlled Pain: adequately controlled Airway Patency, RR, SpO2: stable & adequate BP & HR: stable & adequate Hydration State: stable & adequate Anesthetic Complications: no major complications apparent and Pt Satisfied with anesthetic care
--- NOTE | 2023-07-02 23:13 | Electrocardiogram Report ---
Test Reason : Blood Pressure : / mmHG Vent. Rate : 092 BPM Atrial Rate : 092 BPM P-R Int : 142 ms QRS Dur : 094 ms QT Int : 360 ms P-R-T Axes : 015 018 050 degrees QTc Int : 445 ms Normal sinus rhythm Possible Inferior infarct , age undetermined Cannot rule out Anterior infarct , age undetermined Abnormal ECG No previous ECGs available Confirmed by Jacques Bueno ([id number]) on 07/02/2023 11:13:11 PM Referred By: REFERRED SELF Confirmed By:Jacques Bueno
[2023-07-03] MEDS ORDERED: PANTOprazole 40 MG TAB PO SCH (09:00)
[2023-07-03 09:01] LABS: Basophils % (auto) 0.9 %; Eosinophils # (auto) 0.29 K/uL (0.00-0.50); Eosinophils % (auto) 2.7 %; Hematocrit (blood only) 27.3 % (42.0-52.0); Hemoglobin 9.6 g/dl (14.0-18.0); Immature Granulocytes # (auto) 0.08 K/uL (0.01-0.20); Immature Granulocytes % (auto) 0.7 %; Lymphocytes # (auto) 4.34 K/uL (1.20-3.40); Lymphocytes % (auto) 40.5 %; Mean Corpuscular Hemoglobin 31.1 pg (25.0-34.0); Mean Corpuscular Hgb Conc 35.2 g/dL (32.0-36.0); Mean Corpuscular Volume 88.3 fL (80.0-100.0); Mean Platelet Volume 11.4 fL (9.4-12.4); Monocytes # (auto) 0.95 K/uL (0.11-0.59); Monocytes % (auto) 8.9 %; Neutrophils # (auto) 4.95 K/uL (1.40-6.50); Neutrophils % (auto) 46.3 %; Platelet Count 125 K/uL (130-400); RDW Coefficient of Variation 14.6 % (11.5-14.5); RDW Standard Deviation 46.8 fL (36.4-46.3); Red Blood Count 3.09 M/uL (4.70-6.10); White Blood Count 10.71 K/ul (4.8-10.8)
[2023-07-03 09:57] LABS: Albumin Level 3.5 gm/dl (3.4-5.0); BUN Creatinine Ratio 34.1 (10-20); Calcium 8.2 mg/dl (8.6-10.3); Est GFR (African American) 132.7 ml/min; Est GFR (Non-African American) 114.5 ml/min; Phosphorus 2.2 mg/dl (2.5-4.9); Potassium 3.7 mmol/L (3.5-5.1)
[2023-07-03 10:13] LABS: Estimated Average Glucose 91 mg/dl; Hemoglobin A1C 4.8 % (4.5-5.6)
--- NOTE | 2023-07-03 15:32 | Discharge Summary ---
Date of Service July 03, 2023 Admission HPI Per Admitting Provider Dwain is a 33 year old male w/ PmHx of peptic ulcers, anemia likely from blood loss via ulcers, migraine headaches coming in for hematochezia and hematemesis for 2 days. Patient states that he has a history of peptic ulcer disease from about a year ago where he had the same kind of hematochezia. At that time he had required transfusions for low hemoglobin. He later underwent endoscopy which per [facility] records revealed erosive gastropathy w/ no bleeding and no stigmata of recent bleeding, non bleeding gastric ulcers with no stigmata of bleeding. The area was biopsied without any identification of H. pylori, minimal chronic inflammation with reactive epithelial change. He last followed up with gastroenterology at [facility] on 08/11/2022, he does not currently have a PCP as his old one retired about a year or so ago. He states that over the course of the two days he has felt feverish at times, chills as well. His temperature had been about 99.2F when he checked it the other day. He developed dark bloody stools yesterday morning that came out like diarrhea. He had a migraine headache the other day and ran out of his Excedrin and says that he took his mom's ibuprofen at about 400mg x1. After he developed nausea and vomiting with dark bloody color to the vomit as well. Denies shortness of breath, chest pain, congestion, cough, urinary issues. Patient is not a smoker, has a past history of alcohol use disorder however has not had an issue with it since May of 2022, now has only couple of beers every few weeks. In the ED his WBC 15.83, Hgb 12.9, platelet 185, PT 12.5, INR 1.2, T bili 2.0, otherwise unremarkable CMP. Chest/abdomen XR w/o acute abnormality. Principal Diagnosis Gastric antrum ulcer without stigmata of active bleeding Helicobacter pylori testing results pending at time of discharge Discharge Exam Patient awake alert appropriate no complaints or problems voiced understanding his hospital stay and will have [place]up in his hometown Discharge Data Allergies Allergy/AdvReac Type Severity Reaction Status Date / Time No Known Allergies Allergy Unverified 07/01/23 20:07 Consultations 07/01/23 19:05 ED Decision to Admit Stat 07/01/23 22:39 Consult Gastroenterology Routine Procedures Performed Operation Date: 07/02/23 14:00 Actual Procedures p Esophagogastroduodenoscopy for Hemostasis(Not Applicable) - Souleymane Heredia MD Hospital Course (1) Hematochezia: 33 year old male w/ PmHx peptic ulcers, presents with hamatemsis and hematochezia Hematochezia/Hematemesis/Hx peptic ulcer disease: -History of peptic ulcer disease admitted at [facility] 05/2022 requiring 6 Units PRBC transfusion per [facility] records. -Followed with GI last in July at [facility]. -Development of new bloody diarrhea then bloody vomit after ibuprofen use. Gastric antral ulcer found without stigmata of bleeding. H. pylori testing performed and pending at time of discharge -Ordered pantoprazole 40mg IV BID. -Hemoglobin currently stable at 12.9-11.6 11.6 -Possible trigger for current episode from GI infection vs diet vs ibuprofen use. Given follow-up with gastroenterology upon returning home History of migraine: -Avoid NSAID use for migraines in setting of possible GI bleed. -Continued home sumatriptan for breakthrough treatment. Code status: Full (2) Hematemesis: (3) History of peptic ulcer disease: (4) History of migraine: Total Time Total Time Spent Total Time Spent (In Minutes): It required less than 30 minutes to prepare this patient for discharge Discharge Plan Discharge Items Patient Disposition: Home - Self-Care Reason For Visit: HEMATOCHEZIA, HEMATEMESIS Discharge Diagnosis: Gastric antral ulcer with erosions Activity: Resume your previous activity Non-emergency contact: Primary Care Provider and Cardiac Care Nurse Call non-emergency contact if: your symptoms worsen Follow-up/Referrals: PCP,NO [Primary Care Provider] - Diet: Regular Addtl Attending Provider Instructions: Most peptic ulcers will heal within 4 to 6 weeks after treatment begins. Do not stop taking the medicines you have been prescribed, even if symptoms go away quickly. Diet and Lifestyle People with PUD should eat a healthy balanced diet. It does not help to eat more often or increase the amount of milk and dairy products you consume. These changes may even cause more stomach acid. * Avoid foods and drinks that cause discomfort for you. For many people these include alcohol, coffee, caffeinated soda, fatty foods, chocolate, and spicy foods. * Avoid eating late night snacks. Other things you can do to ease your symptoms and help healing include: * If you smoke or chew tobacco, try to quit. Tobacco will slow the healing of your ulcer and increase the chance that the ulcer will come back. Talk to your doctor abouthow to quit. * Try to reduce your stress level and learn ways to better manage stress. Avoid drugs such as aspirin, ibuprofen (Advil, Motrin), or naproxen (Aleve, Naprosyn). Take acetaminophen (Tylenol) to relieve pain. Take all medicines with plenty of water. Medicines The standard treatment for a peptic ulcer and Melany pyloriinfection uses a combination of medicines that you take for 5 to 14 days. * Most people will take two types of antibiotics and aproton pump inhibitor you are prescribed Protonix 40 mg twice a day (PPI). * These medicines may cause nausea, diarrhea, and other side effects. Do not just stop taking them without talking to your provider first. If you have an ulcer without Melany pyloriinfection, or one that is caused by taking aspirin or NSAIDs, you will likely need to take a proton pump inhibitor for 8 weeks. Taking antacids as needed between meals, and then at bedtime, may help healing also. Ask your provider about taking these medicines. Talk to your provider about your medicine choices if your ulcer was caused by aspirin, ibuprofen, or other NSAIDs. You may be able to take a different anti- inflammatory drug. Or, your provider may have you take a drug called misoprostol or a PPI to prevent future ulcers while taking an NSAID. Follow-up You will have follow-up visits to see how your ulcer is healing especially if the ulcer was in the stomach. Your provider may want to perform an upper endoscopy after treatment if the ulcer was in your stomach. This is to make sure healing has taken place and there are no signs of cancer. Please contact your local GI doctor upon your return home When to Call the Doctor Get medical help right away if you: * Develop sudden, sharp abdominal pain * Have a rigid, hard abdomen that is tender to the touch * Have symptoms of shock, such as fainting, excessive sweating, or confusion * Vomit blood * See blood in your stool (maroon, dark, or tarry black stools) Call your provider if: * You feel dizzy or light-headed * You have ulcer symptoms * You feel full after eating a small meal portion * You experience unintentional weight loss * You are vomiting * You lose your appetite Pending Studies at Discharge: Yes Studies:: H pylori Stand-Alone Forms: My [facility], Work/School Release, Smoking Cessation Medications and DC Order Prescriptions: New pantoprazole [Protonix] 40 mg tablet,delayed release (DR/EC) 40 mg PO BID Qty: 60 3RF Continued sumatriptan succinate [Imitrex] 50 mg Tablet 0 mg PO .COMPLEX Rx Instructions: take 1 tab at onset of headache; if no relief may repeat 1 tab after at least 2 hrs; max = 4 tabs/24 hr acetaminophen [Tylenol Extra Strength] 500 mg Tablet 100 mg PO Q6H PRN (Reason: Pain) albuterol sulfate 90 mcg/actuation Hfa Aerosol Inhaler 2 puff INHALATION Q6H PRN (Reason: Shortness Of Breath Or Wheezing) Pepcid Complete 10-800-165 mg Tablet,Chewable 1 tab PO BID PRN (Reason: Acid Reflux) Discharge Orders: Discharge Order (Routine); Ordered 07/03/23 Ordered By: Eitan Trejo Admission Data Admit Date/Time: 07/01/23 20:28 Attending Provider: Eitan Trejo Admit Provider: Brett Centeno Primary Care Provider: PCP,NO Other Providers: Cole Schroeder ; Souleymane Heredia Other Interventions: Discharge Summary Assessment (RN) Last Done: 07/03/23 10:13 Coding Level of Care Code 44676 IN/OBS DISCH 30 MIN/LESS Diagnoses Hematochezia K92.1 Hematemesis K92.0 History of peptic ulcer disease Z87.11 History of migraine Z86.69
== END 2023-07-03 11:55 | disposition home or self-care (01) ==
LOC: ED 16:19 → INTOOBSV 20:28 → EDINP 20:28 → SUATTDRO 20:28 → EDINP 22:39 → 2N 07-02 17:11